=== PATIENT | female | born 1945 ===

== ENCOUNTER 2018-05-22 06:35 | Day surgery (SDC) | payer OTHER ==
[2018-05-22] MEDS ORDERED: PERCOCET 5-3251 EACH PO (08:58)
[2018-05-22] MEDS ORDERED: DIBUCAINE30 GM TOP (08:59)
== END 2018-05-22 14:30 | disposition home or self-care (01) ==
LOC: CIR.AMB 06:35
DX: D12.9 Benign neoplasm of anus and anal canal (principal)